=== PATIENT | female | born 1950 | race Caucasian/White ===

== ENCOUNTER 2018-01-22 18:48 | Inpatient (IN) | payer MEDICARE, OTHER ==
[~2018-01-22] VITALS: Ht 167.6 cm; Wt 66.4 kg
[2018-01-22 20:18] LABS: Basophils # (auto) 0 uL; Basophils % (auto) 0.5 % (0.0-2.0); Eosinophils # (auto) 0.1 uL; Eosinophils % (auto) 1.6 % (0.0-7.0); Hemoglobin 13.6 g/dL (12.2-16.2); Lymphocytes # (auto) 1.4 uL; Lymphocytes % (auto) 15.3 % (10.0-50.0); Mean Corpuscular Hemoglobin 33.2 pg (28.0-32.0); Mean Corpuscular Hgb Conc. 34.9 g/dL (32.0-36.0); Monocytes # (auto) 0.8 uL; Monocytes % (auto) 8.7 % (0.0-12.0); Neutrophils # (auto) 6.7 uL; Neutrophils % (auto) 73.9 % (37.0-80.0); Platelet Count (auto) 404 10^3/uL (140-450); Red Blood Cells 4.11 10^6/uL (4.0-5.20); Red Cell Distribution Width 13.1 % (11.8-14.3); White Blood Cell 9.1 10^3/uL (4.4-10.8)
[2018-01-22] MEDS ORDERED: CLINDAMYCIN 600MG IV 50 ML IV ONE (20:30)
[2018-01-22 20:33] LABS: Alanine Aminotransferase 12 U/L (13-56); Albumin 2.5 g/dL (3.4-5.0); Anion Gap 10 (5-15); Aspartate Aminotransferase 8 U/L (15-37); BUN/Creatinine Ratio 20.5; Blood Urea Nitrogen 15 mg/dL (7-18); Calcium 8.4 mg/dL (8.5-10.1); Carbon Dioxide 25 mmol/L (21-32); Chloride 99 mmol/L (98-107); GFR African American 103 mL/min; GFR Non-African American 85 mL/min; Glucose 326 mg/dL (74-106); Potassium 3.3 mmol/L (3.5-5.1); Sodium 134 mmol/L (136-145)
[2018-01-22 20:38] LABS: Alkaline Phosphatase 91 U/L (45-117); Bilirubin, Total 0.7 mg/dL (0.2-1.0); Total Protein 7.7 g/dL (6.4-8.2)
[2018-01-23 00:41] LABS: Urine Bacteria FEW /hpf (None Seen); Urine Blood Negative /uL (Negative); Urine Specific Gravity 1.033 (1.001-1.035); Urine WBC 12 /hpf (0 - 5)
[2018-01-23] MEDS ORDERED: TEMAZEPAM 15 MG CAP PO PRN (01:00)
[2018-01-23] MEDS ORDERED: ONDANSETRON HCL 4 MG/2 ML VIAL IV PRN (01:00)
[2018-01-23] MEDS ORDERED: DEXTROSE (50%) 50ML SYRG IV PRN (01:00)
[2018-01-23] MEDS ORDERED: ACETAMINOPHEN 325 MG TAB PO PRN (01:00)
[2018-01-23] MEDS ORDERED: SODIUM CHLORIDE 0.9% 1,000 ML IV ONE (01:15)
[2018-01-23] MEDS ORDERED: IOHEXOL 350 MG/ML 100ML IJ ONE (02:16)
[2018-01-23] MEDS: HYDROcodone-ACET 5/325MG TAB PO PRN ×2 (02:23→22:43)
[2018-01-23 03:07] VITALS: BP 112/75
[2018-01-23 04:37] VITALS: BP 112/75
[2018-01-23] MEDS: CLINDAMYCIN 600MG IV 50 ML IV SCH ×3 (05:48→22:34)
[2018-01-23] MEDS: ACCU-CHEK COMFORT CURVE STRIP VI SCH ×4 (05:58→22:34)
[2018-01-23] MEDS: InsuLIN REG 1unit/0.01ml Soln (100units/ml) SC SCH ×4 (05:59→22:34)
[2018-01-23 08:00] VITALS: BP 104/71
[2018-01-23 10:19] LABS: Basophils # (auto) 0 uL; Basophils % (auto) 0.5 % (0.0-2.0); Eosinophils # (auto) 0.3 uL; Eosinophils % (auto) 3.7 % (0.0-7.0); Hematocrit 36.3 % (36.0-46.0); Hemoglobin 12.6 g/dL (12.2-16.2); Lymphocytes % (auto) 14.8 % (10.0-50.0); Mean Corpuscular Hemoglobin 33.2 pg (28.0-32.0); Mean Corpuscular Hgb Conc. 34.7 g/dL (32.0-36.0); Mean Corpuscular Volume 95.6 fL (80.0-100.0); Monocytes # (auto) 0.8 uL; Monocytes % (auto) 10.8 % (0.0-12.0); Neutrophils # (auto) 4.9 uL; Neutrophils % (auto) 70.2 % (37.0-80.0); Platelet Count (auto) 378 10^3/uL (140-450); Red Cell Distribution Width 12.7 % (11.8-14.3)
[2018-01-23] MEDS: cefTRIAXone 1GM/10ml IVPUSH 10 ML IV SCH (10:26)
[2018-01-23 10:29] LABS: Anion Gap 9 (5-15); BUN/Creatinine Ratio 19.5; Blood Urea Nitrogen 15 mg/dL (7-18); Calcium 8.1 mg/dL (8.5-10.1); Carbon Dioxide 25 mmol/L (21-32); Chloride 101 mmol/L (98-107); GFR African American 96 mL/min; GFR Non-African American 80 mL/min; Glucose 257 mg/dL (74-106); Potassium 3.4 mmol/L (3.5-5.1); Sodium 135 mmol/L (136-145)
[2018-01-23 12:23] VITALS: BP 138/68
[2018-01-23 17:07] VITALS: BP 109/72
[2018-01-23 22:00] VITALS: BP 102/69
[2018-01-23] MEDS: INSULIN LANTUS (GLARGINE) 1 /0.01ml (100units/ml) SC SCH (22:34)
[2018-01-24 04:49] VITALS: BP 117/79
[2018-01-24] MEDS: CLINDAMYCIN 600MG IV 50 ML IV SCH ×3 (06:03→21:36)
[2018-01-24] MEDS: InsuLIN REG 1unit/0.01ml Soln (100units/ml) SC SCH ×4 (06:03→21:36)
[2018-01-24] MEDS: ACCU-CHEK COMFORT CURVE STRIP VI SCH ×4 (06:04→21:36)
[2018-01-24] MEDS: cefTRIAXone 1GM/10ml IVPUSH 10 ML IV SCH (08:51)
[2018-01-24 09:00] VITALS: BP 118/81
[2018-01-24 13:00] VITALS: BP 106/78
[2018-01-24 17:05] VITALS: BP 114/77
[2018-01-24] MEDS: INSULIN LANTUS (GLARGINE) 1 /0.01ml (100units/ml) SC SCH (21:37)
[2018-01-24 22:00] VITALS: BP 111/72
[2018-01-25 05:00] VITALS: BP 97/67
[2018-01-25] MEDS: CLINDAMYCIN 600MG IV 50 ML IV SCH (05:43)
[2018-01-25] MEDS: ACCU-CHEK COMFORT CURVE STRIP VI SCH ×4 (06:18→21:21)
[2018-01-25] MEDS: InsuLIN REG 1unit/0.01ml Soln (100units/ml) SC SCH ×4 (06:19→21:46)
[2018-01-25 08:35] VITALS: BP_SYST 111; BP_SYST 117; BP_DIAS 66; BP_DIAS 79
[2018-01-25] MEDS: cefTRIAXone 1GM/10ml IVPUSH 10 ML IV SCH (09:12)
[2018-01-25] MEDS: CEPHALEXIN 250 MG CAP PO SCH ×3 (12:25→23:48)
[2018-01-25 13:00] VITALS: BP_SYST 121; BP_SYST 99; BP_DIAS 63; BP_DIAS 72
[2018-01-25] MEDS: HYDROcodone-ACET 5/325MG TAB PO PRN ×3 (14:55→23:48)
[2018-01-25 17:09] VITALS: BP 116/73
[2018-01-25] MEDS: INSULIN LANTUS (GLARGINE) 1 /0.01ml (100units/ml) SC SCH (21:46)
[2018-01-25 22:00] VITALS: BP 109/74
[2018-01-26 05:00] VITALS: BP 116/73
[2018-01-26] MEDS: CEPHALEXIN 250 MG CAP PO SCH ×4 (06:12→23:59)
[2018-01-26] MEDS: ACCU-CHEK COMFORT CURVE STRIP VI SCH ×4 (06:12→21:45)
[2018-01-26] MEDS: InsuLIN REG 1unit/0.01ml Soln (100units/ml) SC SCH ×4 (07:50→21:56)
[2018-01-26 09:00] VITALS: BP 120/79
[2018-01-26] MEDS: HYDROcodone-ACET 5/325MG TAB PO PRN ×2 (10:10→17:52)
[2018-01-26 13:00] VITALS: BP 109/76
[2018-01-26 17:00] VITALS: BP 107/79
[2018-01-26 21:41] VITALS: BP 127/79
[2018-01-26] MEDS: INSULIN LANTUS (GLARGINE) 1 /0.01ml (100units/ml) SC SCH (21:56)
[2018-01-27] MEDS: ACCU-CHEK COMFORT CURVE STRIP VI SCH ×4 (05:47→21:31)
[2018-01-27] MEDS: InsuLIN REG 1unit/0.01ml Soln (100units/ml) SC SCH ×4 (05:48→21:40)
[2018-01-27] MEDS: CEPHALEXIN 250 MG CAP PO SCH ×4 (05:48→23:50)
[2018-01-27] MEDS: HYDROcodone-ACET 5/325MG TAB PO PRN ×3 (07:59→19:34)
[2018-01-27 08:00] VITALS: BP 109/70
[2018-01-27 12:36] VITALS: BP 115/75
[2018-01-27 16:40] VITALS: BP 130/82
[2018-01-27] MEDS: INSULIN LANTUS (GLARGINE) 1 /0.01ml (100units/ml) SC SCH (21:40)
[2018-01-27 22:22] VITALS: BP 111/75
[2018-01-28 05:16] VITALS: BP 120/74
[2018-01-28] MEDS: ACCU-CHEK COMFORT CURVE STRIP VI SCH ×4 (05:59→21:41)
[2018-01-28] MEDS: CEPHALEXIN 250 MG CAP PO SCH ×4 (06:00→23:54)
[2018-01-28] MEDS: InsuLIN REG 1unit/0.01ml Soln (100units/ml) SC SCH ×4 (06:00→21:41)
[2018-01-28] MEDS: HYDROcodone-ACET 5/325MG TAB PO PRN ×4 (06:08→20:24)
[2018-01-28 06:15] LABS: Basophils # (auto) 0 uL; Basophils % (auto) 0.7 % (0.0-2.0); Eosinophils # (auto) 0.4 uL; Eosinophils % (auto) 5.9 % (0.0-7.0); Hematocrit 38.2 % (36.0-46.0); Hemoglobin 12.7 g/dL (12.2-16.2); Lymphocytes # (auto) 1.7 uL; Lymphocytes % (auto) 28.3 % (10.0-50.0); Mean Corpuscular Hemoglobin 32.1 pg (28.0-32.0); Mean Corpuscular Hgb Conc. 33.2 g/dL (32.0-36.0); Mean Corpuscular Volume 96.8 fL (80.0-100.0); Monocytes # (auto) 0.6 uL; Monocytes % (auto) 10.7 % (0.0-12.0); Neutrophils # (auto) 3.3 uL; Neutrophils % (auto) 54.4 % (37.0-80.0); Platelet Count (auto) 363 10^3/uL (140-450); Red Blood Cells 3.95 10^6/uL (4.0-5.20); Red Cell Distribution Width 12.9 % (11.8-14.3)
[2018-01-28 06:32] LABS: BUN/Creatinine Ratio 24.2; Calcium 8.3 mg/dL (8.5-10.1)
[2018-01-28 09:10] VITALS: BP 115/81
[2018-01-28 14:04] VITALS: BP 121/81
[2018-01-28 16:37] VITALS: BP 106/71
[2018-01-28 21:32] VITALS: BP 107/83
[2018-01-28] MEDS: INSULIN LANTUS (GLARGINE) 1 /0.01ml (100units/ml) SC SCH (21:42)
[2018-01-29 04:32] VITALS: BP 114/78
[2018-01-29] MEDS: ACCU-CHEK COMFORT CURVE STRIP VI SCH ×2 (06:05→11:11)
[2018-01-29] MEDS: CEPHALEXIN 250 MG CAP PO SCH ×2 (06:05→11:21)
[2018-01-29 06:06] LABS: Basophils # (auto) 0 uL; Basophils % (auto) 0.8 % (0.0-2.0); Eosinophils # (auto) 0.4 uL; Eosinophils % (auto) 7.1 % (0.0-7.0); Hematocrit 37.7 % (36.0-46.0); Hemoglobin 12.8 g/dL (12.2-16.2); Lymphocytes # (auto) 1.8 uL; Lymphocytes % (auto) 29.2 % (10.0-50.0); Mean Corpuscular Volume 97.1 fL (80.0-100.0); Monocytes # (auto) 0.7 uL; Monocytes % (auto) 10.7 % (0.0-12.0); Neutrophils # (auto) 3.2 uL; Neutrophils % (auto) 52.2 % (37.0-80.0); Nucleated Red Blood Cells % 0.1 %; Platelet Count (auto) 385 10^3/uL (140-450); Red Blood Cells 3.89 10^6/uL (4.0-5.20); Red Cell Distribution Width 12.5 % (11.8-14.3); White Blood Cell 6.2 10^3/uL (4.4-10.8)
[2018-01-29] MEDS: InsuLIN REG 1unit/0.01ml Soln (100units/ml) SC SCH ×2 (06:18→11:22)
[2018-01-29] MEDS: HYDROcodone-ACET 5/325MG TAB PO PRN ×2 (06:19→13:37)
[2018-01-29 06:40] LABS: BUN/Creatinine Ratio 26.9; Calcium 8.6 mg/dL (8.5-10.1); Potassium 4.1 mmol/L (3.5-5.1)
[2018-01-29 08:18] VITALS: BP 128/80
[2018-01-29 12:21] VITALS: BP 117/85
[2018-01-29 14:58] VITALS: BP 117/85
== END 2018-01-29 16:10 | disposition home health service (06) | DRG 603 ==
LOC: EDBD 18:48 → ER 18:54 → OVERFLOW 18:55 → WEST WING 01-23 03:07
PROVIDERS: ADMIT Nurse Practitioner Family; ATTEND Internal Medicine
DX: L03.116 Cellulitis of left lower limb (principal); E44.0 Moderate protein-calorie malnutrition; E87.1 Hypo-osmolality and hyponatremia; M71.22 Synovial cyst of popliteal space [Baker], left knee; R79.1 Abnormal coagulation profile; S86.812A Strain of other muscle(s) and tendon(s) at lower leg level, left leg, initial encounter; I10 Essential (primary) hypertension; E11.65 Type 2 diabetes mellitus with hyperglycemia; X58.XXXA Exposure to other specified factors, initial encounter; Z96.649 Presence of unspecified artificial hip joint; E87.6 Hypokalemia; Z79.4 Long term (current) use of insulin; Z68.23 Body mass index [BMI] 23.0-23.9, adult; Y93.89 Activity, other specified; Y92.89 Other specified places as the place of occurrence of the external cause; Y99.8 Other external cause status
CPT/HCPCS: 36415; 71275; 73700; 80048; 80053; 81001; 82962; 83036; 84484; 85025; 85379; 93971; 94761; 96361; 96365; 96375; 97110; 97116; 97163; 97530; J0696; J1815; J3490

== ENCOUNTER 2023-11-02 04:36 | Inpatient (IN) | payer MEDICARE ==
[~2023-11-02] VITALS: Ht 170.2 cm; Wt 65.0 kg
[2023-11-02 05:41] VITALS: PULSE 72; RESP 19; O2SAT 97
[2023-11-02 06:29] LABS: Basophils # (auto) 0 10 ^3/uL (0-0.2); Basophils % (auto) 0.4 % (0.0-2.0); Hemoglobin 8.5 g/dL (12.2-16.2); Lymphocytes # (auto) 0.6 10 ^3/uL (0.4-5.4); Mean Corpuscular Hemoglobin 35.4 pg (28.0-32.0); Mean Corpuscular Hgb Conc. 33.4 g/dL (32.0-36.0)
[2023-11-02 06:33] LABS: Eosinophils # (auto) 0.5 10 ^3/uL (0-0.8); Eosinophils % (auto) 4.9 % (0.0-7.0); Hematocrit 25.5 % (36.0-46.0); Lymphocytes % (auto) 5.7 % (10.0-50.0); Monocytes # (auto) 0.7 10 ^3/uL (0-1.3); Neutrophils # (auto) 9.1 10 ^3/uL (1.6-8.6); Red Cell Distribution Width 14.9 % (11.8-14.3)
[2023-11-02 06:35] LABS: Chloride 101 mmol/L (98-107); Potassium 4.1 mmol/L (3.5-5.1); Sodium 135 mmol/L (136-145)
[2023-11-02 06:36] LABS: Anion Gap 13 (5-15); Carbon Dioxide 21 mmol/L (20-30)
[2023-11-02 06:41] LABS: BUN/Creatinine Ratio 10.3 (10.0-20.0); Blood Urea Nitrogen 64 mg/dL (9-23); Glucose 136 mg/dL (74-106)
[2023-11-02 06:45] LABS: INR 1.15 (0.9-1.15); Partial Thromboplastin Time 35.1 SEC (24.5-34.5); Prothrombin Time 12.1 sec (9.3-11.8)
[2023-11-02 07:45] VITALS: PULSE 72; RESP 16; O2SAT 98
[2023-11-02] MEDS ORDERED: DEXTROSE (50%) 50ML SYRG IV PRN (10:45)
[2023-11-02] MEDS: InsuLIN REG 1unit/0.01ml Soln (100units/ml) SC SCH (11:30)
[2023-11-02] MEDS: ACCU-CHEK COMFORT CURVE STRIP VI SCH (11:49)
[2023-11-02] MEDS: levoFLOXacin 250MG 50 ML IV SCH (16:09)
[2023-11-02 18:38] VITALS: BP 156/79; PULSE 85; TEMP 98.9; O2SAT 99
[2023-11-02 18:44] VITALS: RESP 16; O2SAT 97
[2023-11-02 20:00] VITALS: PULSE 83; RESP 18; O2SAT 94
[2023-11-02 21:00] VITALS: BP 153/78; PULSE 83; RESP 18; TEMP 98.2; O2SAT 94
[2023-11-02] MEDS ORDERED: HYDR-4902 PO (23:36)
[2023-11-02] MEDS ORDERED: BENA5TAB9 PO (23:36)
[2023-11-02] MEDS ORDERED: MELA3TAB27 PO (23:36)
[2023-11-03] VITALS (9 sets, daily range): BP systolic 122–158; BP diastolic 67–89; PULSE 77–88; RESP 14–18; TEMP 98–98.7; O2SAT 93–97
[2023-11-03 10:22] LABS: Basophils # (auto) 0 10 ^3/uL (0-0.2); Basophils % (auto) 0.5 % (0.0-2.0); Eosinophils # (auto) 0.4 10 ^3/uL (0-0.8); Hemoglobin 9.2 g/dL (12.2-16.2); Lymphocytes # (auto) 0.9 10 ^3/uL (0.4-5.4); Mean Corpuscular Hemoglobin 35.9 pg (28.0-32.0); Monocytes # (auto) 0.8 10 ^3/uL (0-1.3)
[2023-11-03 10:24] LABS: Eosinophils % (auto) 4.5 % (0.0-7.0); Hematocrit 27.5 % (36.0-46.0); Lymphocytes % (auto) 10.9 % (10.0-50.0); Mean Corpuscular Hgb Conc. 33.3 g/dL (32.0-36.0); Mean Corpuscular Volume 107.7 fL (80.0-100.0); Neutrophils # (auto) 5.8 10 ^3/uL (1.6-8.6); Neutrophils % (auto) 74.1 % (37.0-80.0); Nucleated Red Blood Cells % 0.1 %; Red Blood Cells 2.55 10^6/uL (4.0-5.20); Red Cell Distribution Width 14.7 % (11.8-14.3); White Blood Cell 7.8 10^3/uL (4.4-10.8)
[2023-11-03 10:25] LABS: Alkaline Phosphatase 52 U/L (46-116); Anion Gap 12 (5-15); BUN/Creatinine Ratio 8.8 (10.0-20.0); Blood Urea Nitrogen 61 mg/dL (9-23); Calcium 9.9 mg/dL (8.5-10.1); Carbon Dioxide 21 mmol/L (20-30); Chloride 100 mmol/L (98-107); Glucose 128 mg/dL (74-106); Potassium 4.7 mmol/L (3.5-5.1); Sodium 133 mmol/L (136-145)
[2023-11-03 10:26] LABS: Albumin 3.2 g/dL (3.2-4.8); Aspartate Aminotransferase 9 U/L (13-40)
[2023-11-03 10:27] LABS: Bilirubin, Total 0.3 mg/dL (0.2-1.0); Total Protein 6.6 g/dL (5.7-8.2)
[2023-11-03 10:29] LABS: Alanine Aminotransferase < 9 U/L (7-40)
[2023-11-03] MEDS: HEPARIN SODIUM (PORCINE) 5000 UNITS/ML 1ML VIAL ONE (12:17)
[2023-11-03] MEDS: fentaNYL CITRATE 100 MCG/2 ML VL ONE (12:17)
[2023-11-03] MEDS: MIDAZOLAM HCL 2MG/2ML 2ml VIAL (1mg/ml) ONE (12:17)
[2023-11-03] MEDS: LIDOCAINE 2%HCL (LOCAL ANESTH.) INJ 20ML MDV ONE (12:18)
[2023-11-03] MEDS: ceFAZolin 1GM/50ML 50 ML IV ONE (12:36)
[2023-11-03] MEDS: IODIXANOL 320MG/ML 100ML BTL IV ONE (13:15)
[2023-11-03] MEDS: SODIUM CHL 0.9% 1000 ML BAG XX ONE (16:30)
[2023-11-03 18:49] LABS: Basophils # (auto) 0 10 ^3/uL (0-0.2); Basophils % (auto) 0.4 % (0.0-2.0); Eosinophils # (auto) 0.4 10 ^3/uL (0-0.8); Eosinophils % (auto) 4.8 % (0.0-7.0); Hematocrit 23.1 % (36.0-46.0); Hemoglobin 7.8 g/dL (12.2-16.2); Mean Corpuscular Hemoglobin 35.3 pg (28.0-32.0); Mean Corpuscular Hgb Conc. 33.8 g/dL (32.0-36.0); Mean Corpuscular Volume 104.5 fL (80.0-100.0); Monocytes # (auto) 0.7 10 ^3/uL (0-1.3); Monocytes % (auto) 8.9 % (0.0-12.0); Neutrophils % (auto) 73.9 % (37.0-80.0); Red Blood Cells 2.21 10^6/uL (4.0-5.20); Red Cell Distribution Width 14.7 % (11.8-14.3); White Blood Cell 8.1 10^3/uL (4.4-10.8)
[2023-11-03 19:14] LABS: Alkaline Phosphatase 52 U/L (46-116); Anion Gap 12 (5-15); Aspartate Aminotransferase 9 U/L (13-40); Blood Urea Nitrogen 65 mg/dL (9-23); Calcium 9.5 mg/dL (8.5-10.1); Carbon Dioxide 22 mmol/L (20-30); Chloride 101 mmol/L (98-107); Glucose 88 mg/dL (74-106); Magnesium 2.3 mg/dL (1.6-2.6); Potassium 4.6 mmol/L (3.5-5.1); Sodium 135 mmol/L (136-145)
[2023-11-03 19:15] LABS: Bilirubin, Total 0.2 mg/dL (0.2-1.0); Phosphorus 6.2 mg/dL (2.4-5.1); Total Protein 6.2 g/dL (5.7-8.2)
[2023-11-03 19:26] LABS: Alanine Aminotransferase < 9 U/L (7-40)
[2023-11-03] MEDS ORDERED: EPOETIN ALFA-EPBX 10,000 UNIT/1ML VIAL SC ONE (21:00)
[2023-11-03] MEDS: MORPHINE SULFATE INJ 2 MG/ml SYRG IV PRN (22:05)
[2023-11-03] MEDS: EPOETIN ALFA-EPBX 4,000 UNIT/ML VIAL SC ONE (22:11)
[2023-11-04] VITALS (7 sets, daily range): BP systolic 114–148; BP diastolic 59–81; PULSE 72–94; RESP 16–20; TEMP 97.5–99.8; O2SAT 93–100
[2023-11-04] MEDS ORDERED: VANCOMYCIN PER PHARMACY 0 MG IV SCH (02:30)
[2023-11-04] MEDS: VANCOMYCIN 1GM/200ML 200 ML IV ONE (04:55)
[2023-11-04] MEDS: HEPARIN SODIUM (PORCINE) 5000 UNITS/ML 1ML VIAL ONE ×2 (13:44→15:17)
[2023-11-04] MEDS: LIDOCAINE 1% HCL (LOCAL ANESTH.) INJ 20ML MDV ONE ×2 (13:46→14:16)
[2023-11-04] MEDS: HEPARIN 1,000 UNITS/ml 1ML VIAL ONE (14:16)
[2023-11-04] MEDS ORDERED: fentaNYL CITRATE 100 MCG/2 ML VL ONE (14:29)
[2023-11-04] MEDS ORDERED: LIDOCAINE 2% (LOCAL ANESTH.) PF 5ml SDV ONE (14:29)
[2023-11-04] MEDS ORDERED: ONDANSETRON HCL 4 MG/2 ML VIAL ONE (14:29)
[2023-11-04] MEDS ORDERED: MIDAZOLAM HCL 2MG/2ML 2ml VIAL (1mg/ml) ONE (14:29)
[2023-11-04] MEDS ORDERED: METOCLOPRAMIDE HCL 5MG/ml INJ 2ml VIAL ONE (14:30)
[2023-11-04] MEDS ORDERED: ETOMIDATE (2MG/ML) 20ML VIAL IV ONE (14:30)
[2023-11-04] MEDS ORDERED: ePHEDrine SULFATE 50 MG/ML AMP ONE (15:30)
[2023-11-04] MEDS: levoFLOXacin 250MG 50 ML IV SCH (16:06)
[2023-11-04] MEDS ORDERED: PHENYLEPHRINE HCL 10 MG/ML VL ONE (16:32)
[2023-11-04] MEDS: PROTAMINE SULFATE 10 MG/ML 5ML VIAL IV ONE (16:37)
[2023-11-04] MEDS: VANCOMYCIN HCL 1000 MG VL ONE (17:00)
[2023-11-04] MEDS: LIDOCAINE HCL 1%(LOCAL ANESTH.) INJ 50ML MDV IJ ONE (17:10)
[2023-11-04] MEDS ORDERED: HYDROmorphone HCL 2 MG/ML VL/or syr IV PRN (17:30)
[2023-11-04] MEDS: ONDANSETRON HCL 4 MG/2 ML VIAL IV ONE (17:30)
[2023-11-04 20:01] LABS: Chloride 102 mmol/L (98-107); Potassium 3.9 mmol/L (3.5-5.1); Sodium 134 mmol/L (136-145)
[2023-11-04 20:02] LABS: Anion Gap 8 (5-15); Carbon Dioxide 24 mmol/L (20-30)
[2023-11-04 20:07] LABS: BUN/Creatinine Ratio 6.4 (10.0-20.0); Glucose 135 mg/dL (74-106)
[2023-11-04 20:08] LABS: Blood Urea Nitrogen 26 mg/dL (9-23)
[2023-11-05] VITALS (14 sets, daily range): BP systolic 123–168; BP diastolic 64–94; PULSE 84–105; RESP 16–20; TEMP 98–99.4; O2SAT 94–96
[2023-11-05 07:04] LABS: Basophils # (auto) 0 10 ^3/uL (0-0.2); Basophils % (auto) 0.3 % (0.0-2.0); Eosinophils # (auto) 0.3 10 ^3/uL (0-0.8); Lymphocytes # (auto) 0.8 10 ^3/uL (0.4-5.4); Monocytes # (auto) 0.6 10 ^3/uL (0-1.3)
[2023-11-05 07:09] LABS: Hematocrit 19.9 % (36.0-46.0); Lymphocytes % (auto) 12.2 % (10.0-50.0); Mean Corpuscular Hemoglobin 35.8 pg (28.0-32.0); Mean Corpuscular Hgb Conc. 32.3 g/dL (32.0-36.0); Mean Corpuscular Volume 110.9 fL (80.0-100.0); Monocytes % (auto) 9.4 % (0.0-12.0); Neutrophils # (auto) 4.9 10 ^3/uL (1.6-8.6); Neutrophils % (auto) 74.1 % (37.0-80.0); White Blood Cell 6.6 10^3/uL (4.4-10.8)
[2023-11-05 07:32] LABS: Hemoglobin 6.4 g/dL (12.2-16.2)
[2023-11-05 07:53] LABS: Macrocytosis Marked; Platelet Estimate Adequate
[2023-11-05] MEDS: VANCOMYCIN 1GM/200ML 200 ML IV ONE (16:29)
[2023-11-06] VITALS (8 sets, daily range): BP systolic 99–168; BP diastolic 53–97; PULSE 73–100; RESP 16–20; TEMP 97.6–98.4; O2SAT 94–99
[2023-11-06 06:28] LABS: Basophils # (auto) 0 10 ^3/uL (0-0.2); Eosinophils # (auto) 0.4 10 ^3/uL (0-0.8); Hemoglobin 9.5 g/dL (12.2-16.2); Mean Corpuscular Hgb Conc. 34.5 g/dL (32.0-36.0)
[2023-11-06 06:30] LABS: Basophils % (auto) 0.4 % (0.0-2.0); Eosinophils % (auto) 5.3 % (0.0-7.0); Hematocrit 27.5 % (36.0-46.0); Lymphocytes # (auto) 1.1 10 ^3/uL (0.4-5.4); Lymphocytes % (auto) 15.1 % (10.0-50.0); Mean Corpuscular Hemoglobin 34.4 pg (28.0-32.0); Mean Corpuscular Volume 99.7 fL (80.0-100.0); Monocytes # (auto) 0.7 10 ^3/uL (0-1.3); Monocytes % (auto) 10.2 % (0.0-12.0); Neutrophils # (auto) 5.1 10 ^3/uL (1.6-8.6); Red Blood Cells 2.76 10^6/uL (4.0-5.20); Red Cell Distribution Width 18.8 % (11.8-14.3); White Blood Cell 7.3 10^3/uL (4.4-10.8)
[2023-11-06] MEDS: cloNIDine HCL 0.1 MG TAB PO ONE (07:11)
[2023-11-06 09:43] LABS: Hepatitis B Surface Antigen Negative (Negative)
[2023-11-06 10:04] LABS: Hepatitis A Ab IgM Negative
[2023-11-06 10:05] LABS: Hepatitis C Antibody Negative (Negative)
[2023-11-06 11:09] LABS: Hepatitis B Core IgM Negative
[2023-11-06 12:22] LABS: Albumin 2.7 g/dL (3.2-4.8); Alkaline Phosphatase 48 U/L (46-116); Anion Gap 7 (5-15); Aspartate Aminotransferase 9 U/L (13-40); Blood Urea Nitrogen 24 mg/dL (9-23); Carbon Dioxide 27 mmol/L (20-30); Chloride 101 mmol/L (98-107); Glucose 120 mg/dL (74-106); Sodium 135 mmol/L (136-145)
[2023-11-06 12:23] LABS: Bilirubin, Total 0.6 mg/dL (0.2-1.0); Total Protein 5.4 g/dL (5.7-8.2)
[2023-11-06 12:33] LABS: Alanine Aminotransferase < 9 U/L (7-40)
[2023-11-06] MEDS: HYDROcodone-ACET 5/325MG TAB PO PRN (20:12)
[2023-11-07] VITALS (7 sets, daily range): BP systolic 121–159; BP diastolic 67–84; PULSE 65–89; RESP 16–21; TEMP 97.6–99.1; O2SAT 95–97
[2023-11-08 01:00] VITALS: BP 149/88; PULSE 91; RESP 18; TEMP 98.8; O2SAT 92
[2023-11-08 05:00] VITALS: BP_SYST 151; BP_SYST 158; BP_DIAS 75; BP_DIAS 77; PULSE 74; PULSE 90; RESP 18; TEMP 98.3; TEMP 98.4; O2SAT 94; O2SAT 96
[2023-11-08 06:31] LABS: Basophils # (auto) 0.1 10 ^3/uL (0-0.2); Basophils % (auto) 0.6 % (0.0-2.0); Eosinophils # (auto) 0.5 10 ^3/uL (0-0.8); Eosinophils % (auto) 5.3 % (0.0-7.0); Hematocrit 27.5 % (36.0-46.0); Hemoglobin 9.2 g/dL (12.2-16.2); Lymphocytes # (auto) 1.2 10 ^3/uL (0.4-5.4); Lymphocytes % (auto) 14.1 % (10.0-50.0); Mean Corpuscular Hemoglobin 33.8 pg (28.0-32.0); Mean Corpuscular Hgb Conc. 33.5 g/dL (32.0-36.0); Mean Corpuscular Volume 100.9 fL (80.0-100.0); Monocytes # (auto) 0.4 10 ^3/uL (0-1.3); Neutrophils # (auto) 6.5 10 ^3/uL (1.6-8.6); Nucleated Red Blood Cells % 0.1 %; Red Blood Cells 2.72 10^6/uL (4.0-5.20); Red Cell Distribution Width 17.3 % (11.8-14.3); White Blood Cell 8.7 10^3/uL (4.4-10.8)
[2023-11-08 06:35] LABS: Anion Gap 7 (5-15); Carbon Dioxide 27 mmol/L (20-30); Chloride 98 mmol/L (98-107); Potassium 4.3 mmol/L (3.5-5.1); Sodium 132 mmol/L (136-145)
[2023-11-08 06:41] LABS: BUN/Creatinine Ratio 7.2 (10.0-20.0); Blood Urea Nitrogen 24 mg/dL (9-23); Calcium 9.4 mg/dL (8.5-10.1); Glucose 116 mg/dL (74-106)
[2023-11-08 08:00] VITALS: PULSE 68; RESP 18; O2SAT 95
[2023-11-08] MEDS: ENOXAPARIN SOD 30 MG/0.3 ML SYRINGE SC SCH (12:16)
[2023-11-08 13:00] VITALS: BP 139/83; PULSE 96; RESP 18; TEMP 98.6; O2SAT 96
[2023-11-08 17:00] VITALS: BP 130/74; PULSE 82; RESP 18; TEMP 99.1; O2SAT 95
[2023-11-08] MEDS: MICAFUNGIN SODIUM 100 MG in SODIUM CHL 0.9% 100 ML IV SCH (18:00)
[2023-11-08 21:00] VITALS: BP 153/84; PULSE 86; RESP 19; TEMP 98.3; O2SAT 96
[2023-11-09 01:00] VITALS: BP 156/83; PULSE 73; RESP 18; TEMP 97.8; O2SAT 95
[2023-11-09 05:00] VITALS: BP 155/83; PULSE 78; RESP 18; TEMP 97.4; O2SAT 97
[2023-11-09 09:00] VITALS: BP 147/84; PULSE 80; RESP 16; TEMP 97.6; O2SAT 96
[2023-11-09] MEDS: VANCOMYCIN 1GM/200ML 200 ML IV ONE (10:00)
[2023-11-09] MEDS: FLUCONAZOLE 200MG/100ML 100 ML IV SCH (11:00)
[2023-11-09 13:00] VITALS: BP 149/90; PULSE 76; RESP 18; TEMP 97.2; O2SAT 98
[2023-11-09 17:00] VITALS: BP 164/77; PULSE 85; RESP 16; TEMP 97.7; O2SAT 96
[2023-11-09 21:00] VITALS: BP 159/80; PULSE 81; RESP 18; TEMP 98.4; O2SAT 96
[2023-11-10 01:00] VITALS: BP 156/88; PULSE 84; RESP 18; TEMP 97.5; O2SAT 94
[2023-11-10 05:00] VITALS: BP 166/91; PULSE 82; RESP 18; TEMP 97.1; O2SAT 82
[2023-11-10 06:15] LABS: Hematocrit 26.4 % (36.0-46.0); Hemoglobin 9.5 g/dL (12.2-16.2)
[2023-11-10 06:29] LABS: Anion Gap 7 (5-15); Carbon Dioxide 27 mmol/L (20-30); Chloride 98 mmol/L (98-107); Potassium 4.2 mmol/L (3.5-5.1); Sodium 132 mmol/L (136-145)
[2023-11-10 06:31] LABS: Calcium 9.4 mg/dL (8.5-10.1)
[2023-11-10 06:35] LABS: Glucose 108 mg/dL (74-106)
[2023-11-10 06:36] LABS: Blood Urea Nitrogen 27 mg/dL (9-23)
[2023-11-10 09:00] VITALS: BP 153/83; PULSE 77; RESP 16; TEMP 98.2; O2SAT 94
[2023-11-10 13:00] VITALS: BP 140/71; PULSE 85; RESP 18; TEMP 98.1; O2SAT 94
[2023-11-10 17:00] VITALS: BP 125/62; PULSE 62; RESP 14; TEMP 98.5; O2SAT 93
[2023-11-10 21:00] VITALS: BP 141/76; PULSE 85; RESP 17; TEMP 98.5; O2SAT 93
[2023-11-11] VITALS (8 sets, daily range): BP systolic 144–169; BP diastolic 75–99; PULSE 80–103; RESP 17–20; TEMP 97.5–98.8; O2SAT 94–96
[2023-11-11 05:11] LABS: Basophils # (auto) 0.1 10 ^3/uL (0-0.2); Basophils % (auto) 0.7 % (0.0-2.0); Eosinophils # (auto) 0.4 10 ^3/uL (0-0.8); Eosinophils % (auto) 5.3 % (0.0-7.0); Hematocrit 25.6 % (36.0-46.0); Hemoglobin 8.7 g/dL (12.2-16.2); Lymphocytes # (auto) 1.4 10 ^3/uL (0.4-5.4); Lymphocytes % (auto) 18.8 % (10.0-50.0); Mean Corpuscular Hemoglobin 34.3 pg (28.0-32.0); Mean Corpuscular Hgb Conc. 34.1 g/dL (32.0-36.0); Mean Corpuscular Volume 100.8 fL (80.0-100.0); Monocytes # (auto) 0.7 10 ^3/uL (0-1.3); Monocytes % (auto) 9.6 % (0.0-12.0); Neutrophils # (auto) 4.9 10 ^3/uL (1.6-8.6); Neutrophils % (auto) 65.6 % (37.0-80.0); Nucleated Red Blood Cells % 0.1 %; Red Blood Cells 2.54 10^6/uL (4.0-5.20); Red Cell Distribution Width 16.8 % (11.8-14.3); White Blood Cell 7.5 10^3/uL (4.4-10.8)
[2023-11-11 05:24] LABS: Chloride 102 mmol/L (98-107); Potassium 3.5 mmol/L (3.5-5.1); Sodium 136 mmol/L (136-145)
[2023-11-11 05:25] LABS: Anion Gap 6 (5-15); Calcium 9.3 mg/dL (8.5-10.1); Carbon Dioxide 28 mmol/L (20-30)
[2023-11-11 05:30] LABS: BUN/Creatinine Ratio 6.3 (10.0-20.0); Blood Urea Nitrogen 19 mg/dL (9-23); Glucose 91 mg/dL (74-106)
[2023-11-11] MEDS: DOCUSATE SOD 100 MG CAP PO PRN (12:15)
[2023-11-11] MEDS: hydrALAZINE HCL 20 MG/ML VL IV PRN (18:18)
[2023-11-12] VITALS (7 sets, daily range): BP systolic 130–162; BP diastolic 68–92; PULSE 83–89; RESP 16–18; TEMP 97.7–98.7; O2SAT 94–98
[2023-11-12] MEDS: LACTULOSE 20Gm/30ML SOLN PO PRN (14:27)
[2023-11-12] MEDS: ONDANSETRON HCL 4 MG/2 ML VIAL IV PRN (14:27)
[2023-11-13] VITALS (9 sets, daily range): BP systolic 132–157; BP diastolic 67–87; PULSE 82–93; RESP 14–16; TEMP 98.2–99.3; O2SAT 93–96
[2023-11-13] MEDS: ALBUMIN 25% 100 ML IV STA (20:27)
[2023-11-13] MEDS: HEPARIN SODIUM (PORCINE) 5000 UNITS/ML 1ML VIAL IV ONE (22:06)
[2023-11-13] MEDS: SODIUM CHL 0.9% 1000 ML BAG XX ONE (22:30)
[2023-11-14 00:42] VITALS: BP 127/72; PULSE 89; RESP 16; TEMP 98.3; O2SAT 92
[2023-11-14 05:00] VITALS: BP 130/66; PULSE 78; RESP 16; TEMP 98.1; O2SAT 92
[2023-11-14] MEDS: fentaNYL CITRATE 100 MCG/2 ML VL IV ONE (08:15)
[2023-11-14] MEDS: LIDOCAINE VISCOUS 2% 15ML UD PO ONE (08:15)
[2023-11-14] MEDS: MIDAZOLAM HCL 2MG/2ML 2ml VIAL (1mg/ml) IV ONE (08:15)
[2023-11-14 09:00] VITALS: BP 160/83; PULSE 86; RESP 16; TEMP 98.1; O2SAT 94
[2023-11-14 13:00] VITALS: BP 151/87; PULSE 99; RESP 18; TEMP 98.1; O2SAT 96
[2023-11-14 17:00] VITALS: BP 143/87; PULSE 92; RESP 17; TEMP 98.4; O2SAT 93
[2023-11-14] MEDS: VANCOMYCIN 500 MG in D5W 5% 100 ML IV ONE (18:06)
[2023-11-14 21:00] VITALS: BP 144/84; PULSE 85; RESP 19; TEMP 98.3; O2SAT 97
[2023-11-15] VITALS (8 sets, daily range): BP systolic 143–159; BP diastolic 70–86; PULSE 80–94; RESP 16–23; TEMP 97.8–98.6; O2SAT 86–95
[2023-11-15 05:59] LABS: Anion Gap 7 (5-15); Carbon Dioxide 27 mmol/L (20-30); Chloride 102 mmol/L (98-107); Potassium 4.1 mmol/L (3.5-5.1); Sodium 136 mmol/L (136-145)
[2023-11-15 06:05] LABS: BUN/Creatinine Ratio 5.9 (10.0-20.0); Blood Urea Nitrogen 17 mg/dL (9-23); Glucose 88 mg/dL (74-106)
[2023-11-15 07:08] LABS: Basophils # (auto) 0.1 10 ^3/uL (0-0.2); Basophils % (auto) 0.8 % (0.0-2.0); Eosinophils # (auto) 0.3 10 ^3/uL (0-0.8); Eosinophils % (auto) 4.6 % (0.0-7.0); Hematocrit 27.2 % (36.0-46.0); Hemoglobin 8.9 g/dL (12.2-16.2); Lymphocytes % (auto) 14.8 % (10.0-50.0); Mean Corpuscular Hemoglobin 33.3 pg (28.0-32.0); Mean Corpuscular Hgb Conc. 32.8 g/dL (32.0-36.0); Mean Corpuscular Volume 101.4 fL (80.0-100.0); Monocytes # (auto) 0.7 10 ^3/uL (0-1.3); Monocytes % (auto) 10.4 % (0.0-12.0); Neutrophils # (auto) 4.4 10 ^3/uL (1.6-8.6); Neutrophils % (auto) 69.4 % (37.0-80.0); Nucleated Red Blood Cells % 0.1 %; Red Blood Cells 2.69 10^6/uL (4.0-5.20); White Blood Cell 6.4 10^3/uL (4.4-10.8)
[2023-11-15 07:31] LABS: INR 1.14 (0.9-1.15); Partial Thromboplastin Time 36.1 SEC (24.5-34.5)
[2023-11-15] MEDS: LIDOCAINE VISCOUS 2% 15ML UD MT ONE (10:33)
[2023-11-15] MEDS: MIDAZOLAM HCL 2MG/2ML 2ml VIAL (1mg/ml) IV ONE (10:34)
[2023-11-15] MEDS: fentaNYL CITRATE 100 MCG/2 ML VL IV ONE (10:36)
[2023-11-15] MEDS ORDERED: VANCOMYCIN PER PHARMACY 0 MG IV SCH (12:45)
[2023-11-16] VITALS (10 sets, daily range): BP systolic 143–170; BP diastolic 77–99; PULSE 80–89; RESP 18–21; TEMP 97.8–98.2; O2SAT 85–97
[2023-11-16] MEDS: HYDROcodone-ACET 5/325MG TAB PO PRN (06:04)
[2023-11-17 01:00] VITALS: BP_SYST 149; BP_SYST 168; BP_DIAS 89; BP_DIAS 95; RESP 22; TEMP 97.8; O2SAT 97
[2023-11-17 05:00] VITALS: BP 150/79; PULSE 83; RESP 23; TEMP 98; O2SAT 94
[2023-11-17 06:34] LABS: Hematocrit 26.4 % (36.0-46.0); Hemoglobin 8.7 g/dL (12.2-16.2)
[2023-11-17 06:55] LABS: % Iron Saturation 40.6 % (15-50)
[2023-11-17 08:00] VITALS: PULSE 85; RESP 18; O2SAT 94
[2023-11-17 09:00] VITALS: BP 153/84; PULSE 85; RESP 18; TEMP 98.6; O2SAT 94
[2023-11-17] MEDS: SODIUM CHL 0.9% 1000 ML BAG XX ONE (09:38)
[2023-11-17] MEDS ORDERED: ALBUMIN 25% 100 ML, ALBUMIN 25% 100 ML IV PRN (09:45)
[2023-11-17] MEDS: ALBUMIN 25% 100 ML IV PRN (10:54)
[2023-11-17 13:00] VITALS: BP 148/83; PULSE 92; RESP 16; TEMP 97.8; O2SAT 95
[2023-11-17] MEDS: VANCOMYCIN 500 MG in D5W 5% 100 ML IV ONE (16:22)
[2023-11-17 17:00] VITALS: BP 157/86; PULSE 85; RESP 16; TEMP 98.1; O2SAT 96
== END 2023-11-17 20:08 | DRG 252 ==
LOC: EDBD 04:36 → ER 04:36 → OVERFLOW 10:51 → EAST 17:53
PROVIDERS: ADMIT Nurse Practitioner Family; ATTEND Nurse Practitioner Acute Care
PROC: 0JH63XZ Insertion of Tunneled Vascular Access Device into Chest Subcutaneous Tissue and Fascia, Percutaneous Approach (ICD-10-PCS; 2023-11-03)
PROC: 02H633Z Insertion of Infusion Device into Right Atrium, Percutaneous Approach (ICD-10-PCS; 2023-11-03)
PROC: B5181ZA Fluoroscopy of Superior Vena Cava using Low Osmolar Contrast, Guidance (ICD-10-PCS; 2023-11-03)
PROC: B548ZZA Ultrasonography of Superior Vena Cava, Guidance (ICD-10-PCS; 2023-11-03)
PROC: 5A1D70Z Performance of Urinary Filtration, Intermittent, Less than 6 Hours Per Day (ICD-10-PCS; 2023-11-03)
PROC: 03PY07Z Removal of Autologous Tissue Substitute from Upper Artery, Open Approach (ICD-10-PCS; 2023-11-04)
PROC: 05PY07Z Removal of Autologous Tissue Substitute from Upper Vein, Open Approach (ICD-10-PCS; principal; 2023-11-04 14:30)
PROC: 30233N1 Transfusion of Nonautologous Red Blood Cells into Peripheral Vein, Percutaneous Approach (ICD-10-PCS; 2023-11-05)
PROC: 5A1D70Z Performance of Urinary Filtration, Intermittent, Less than 6 Hours Per Day (ICD-10-PCS; 2023-11-05)
PROC: 5A1D70Z Performance of Urinary Filtration, Intermittent, Less than 6 Hours Per Day (ICD-10-PCS; 2023-11-06)
PROC: 5A1D70Z Performance of Urinary Filtration, Intermittent, Less than 6 Hours Per Day (ICD-10-PCS; 2023-11-08)
PROC: 5A1D70Z Performance of Urinary Filtration, Intermittent, Less than 6 Hours Per Day (ICD-10-PCS; 2023-11-10)
PROC: 5A1D70Z Performance of Urinary Filtration, Intermittent, Less than 6 Hours Per Day (ICD-10-PCS; 2023-11-13)
PROC: B24BZZ4 Ultrasonography of Heart with Aorta, Transesophageal (ICD-10-PCS; 2023-11-15)
DX: T82.7XXA Infection and inflammatory reaction due to other cardiac and vascular devices, implants and grafts, initial encounter (principal); A41.9 Sepsis, unspecified organism; N18.6 End stage renal disease; I12.0 Hypertensive chronic kidney disease with stage 5 chronic kidney disease or end stage renal disease; J90 Pleural effusion, not elsewhere classified; J98.11 Atelectasis; L97.419 Non-pressure chronic ulcer of right heel and midfoot with unspecified severity; L03.114 Cellulitis of left upper limb; B37.89 Other sites of candidiasis; T82.838A Hemorrhage due to vascular prosthetic devices, implants and grafts, initial encounter; E11.22 Type 2 diabetes mellitus with diabetic chronic kidney disease; E11.51 Type 2 diabetes mellitus with diabetic peripheral angiopathy without gangrene; E11.621 Type 2 diabetes mellitus with foot ulcer; E11.65 Type 2 diabetes mellitus with hyperglycemia; D63.1 Anemia in chronic kidney disease; L98.419 Non-pressure chronic ulcer of buttock with unspecified severity; L89.152 Pressure ulcer of sacral region, stage 2; B95.62 Methicillin resistant Staphylococcus aureus infection as the cause of diseases classified elsewhere; E11.649 Type 2 diabetes mellitus with hypoglycemia without coma; I72.8 Aneurysm of other specified arteries; Z74.01 Bed confinement status; Z96.641 Presence of right artificial hip joint; Z79.4 Long term (current) use of insulin; Z99.2 Dependence on renal dialysis; Z88.1 Allergy status to other antibiotic agents; Z82.49 Family history of ischemic heart disease and other diseases of the circulatory system; Z83.3 Family history of diabetes mellitus; Z87.891 Personal history of nicotine dependence; Y84.8 Other medical procedures as the cause of abnormal reaction of the patient, or of later complication, without mention of misadventure at the time of the procedure; Y92.89 Other specified places as the place of occurrence of the external cause
CPT/HCPCS: 36415; 36558; 71045; 77001; 80048; 80053; 80074; 80202; 82565; 82728; 82962; 83540; 83550; 83735; 84100; 85014; 85018; 85025; 85610; 85730; 86850; 86900; 86901; 86920; 87040; 87070; 87075; 87205; 90935; 93005; 93312; 93971; 97110; 97163; 97530; 99152; G0378; J1450; J1642; J1815; J2001; J2248; J2250; J2405; J7060; P9047; Q9967